=== PATIENT | male | born 1965 | race Caucasian/White ===

== ENCOUNTER 2019-06-12 19:05 | Emergency (ER) | payer SELFPAY ==
[~2019-06-12] VITALS: Ht 180.3 cm; Wt 95.3 kg
[2019-06-12 19:36] VITALS: Ht 180.3 cm; Wt 95.3 kg
[2019-06-12] MEDS ORDERED: TORADOL10 MG PO (20:54)
[2019-06-12 22:38] VITALS: BP 158/79
== END 2019-06-12 21:23 | disposition home or self-care (01) ==
LOC: D.ER 19:05
DX: S02.2XXA Fracture of nasal bones, initial encounter for closed fracture (principal); S00.33XA Contusion of nose, initial encounter; S80.01XA Contusion of right knee, initial encounter; S76.911A Strain of unspecified muscles, fascia and tendons at thigh level, right thigh, initial encounter; Y04.2XXA Assault by strike against or bumped into by another person, initial encounter; Y93.9 Activity, unspecified; Y92.9 Unspecified place or not applicable